=== PATIENT | male | born 1995 | race Caucasian/White ===

== ENCOUNTER 2018-10-10 15:51 | Emergency (ER) | payer OTHER ==
[~2018-10-10] VITALS: Ht 177.8 cm; Wt 90.7 kg
[2018-10-10] MEDS ORDERED: ZPAK PO (16:43)
[2018-10-10] MEDS ORDERED: TESSALON PERLE100 MG PO (16:43)
[2018-10-10] MEDS ORDERED: VENTOLIN HFA 1818 GM INH (16:43)
[2018-10-10] MEDS ORDERED: OCUFLOX5 ML OPHTHALMIC (16:48)
[2018-10-10 16:55] VITALS: BP 123/72
== END 2018-10-10 16:57 | disposition home or self-care (01) ==
LOC: M.ERS 15:51
DX: J18.9 Pneumonia, unspecified organism (principal); H10.33 Unspecified acute conjunctivitis, bilateral; Z90.89 Acquired absence of other organs

== ENCOUNTER 2020-04-12 10:24 | Emergency (ER) | payer OTHER ==
[~2020-04-12] VITALS: Ht 182.9 cm; Wt 81.7 kg
[~2020-04-12 10:24] MED LIST: OCUFLOX5 ML OPHTHALMIC; TESSALON PERLE100 MG PO; VENTOLIN HFA 1818 GM INH; ZPAK PO
[2020-04-12 11:14] LABS: ABSOLUTE LYMPHOCYTES 2.1 thou/uL (0.8-5.3); ABSOLUTE MONOCYTES 0.4 thou/uL (0.0-1.2); ABSOLUTE NEUTROPHILS 2.3 thou/uL (1.6-8.1); BASOPHILS 0.8 %; EOSINOPHILS 0.5 %; HEMATOCRIT 42.8 % (42.0-52.0); HEMOGLOBIN 14.9 gm/dL (14.0-18.0); LYMPHOCYTES 43.8 %; MCH 31.2 pg (26.0-34.0); MCHC 34.7 g/dL (28.0-37.0); MCV 89.8 fL (80.0-100.0); MONOCYTES 7.3 %; MPV 8.1 fl. (7.2-11.1); NUCLEATED RBCS 0 /100WBC; PLATELET COUNT* 191 thou/uL (150-400); POLYS 47.6 %; RBC 4.77 mil/uL (4.50-6.00); RDW-CV 12.6 % (10.5-14.5); WBC 4.9 thou/uL (4.0-11.0)
[2020-04-12 11:20] LABS: CALCIUM 8.3 mg/dL (8.5-10.1); POTASSIUM 3.4 mmol/L (3.5-5.1)
[2020-04-12 11:26] LABS: APTT 27.4 Seconds (25.0-31.3); INR 1.1; PROTIME 11.4 Seconds (9.20-11.50)
[2020-04-12 11:34] LABS: ALBUMIN 4.8 g/dL (3.4-5.0); CK-MB MASS 1.4 ng/mL (<0.5-3.6); TOTAL BILIRUBIN 1.3 mg/dL (<0.1-1.0); TOTAL PROTEIN 8.2 g/dL (6.4-8.2)
[2020-04-12 11:50] VITALS: BP 117/81
--- NOTE | 2020-04-13 17:39 | EKG ---
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: [facility] : 1995 Requested By: Navid Vigil Order Number: [id number] MD: Alan Godfrey Measurements Intervals [place] Rate: 58 P: 22 TX: 121 QRS: 5 QRSD: 112 T: 21 QT: 433 QTc: 426 Interpretive Statements Sinus rhythm Incomplete right bundle branch block ST elev, probable normal early repol pattern No previous ECG available for comparison Electronically Signed On 04-13-2020 17:39:18 CDT by Alan Godfrey [email or web address] <ELECTRONICALLY SIGNED> By: Alan Godfrey MD, [facility] 04/13/20 1739 1029 28 Alan Godfrey MD, [facility] /EPI
== END 2020-04-12 11:50 | disposition home or self-care (01) ==
LOC: M.ERS 10:24
PROVIDERS: Family Medicine
DX: F41.9 Anxiety disorder, unspecified (principal); Z90.89 Acquired absence of other organs